=== PATIENT | female | born 1975 | race African-American/Black ===

== ENCOUNTER 2016-10-05 13:11 | Emergency (ER) | payer OTHER ==
[2016-10-05 13:21] VITALS: TEMP 99.1; BMI 29.8
--- NOTE | 2016-10-05 13:58 | PDOC ---
History of Present Illness - General Chief Complaint: Palpitations Stated Complaint: PALPITATION Time Seen by Provider: 10/05/16 13:18 - History of Present Illness Initial Comments: 10/05/16 13:52 41-year-old female with a negative past medical history Surgical history-liposuction She is on no medications, NKDA Patient is a nonsmoker Patient does not take oral contraceptives Patient states that she has had a long history of occasional palpitations, which are intermittent, and for which she has not sought medical attention She states that she was awakened at 4:30 AM this AM with palpitations which were on more continuously today, and then got worse at work, prompting her to come to the emergency department She states that there was a very brief episode of a right pinching chest pain associated with 1 episode, but no mid or left sided chest pain or left arm radiation She denies any shortness of breath She denies any leg swelling She denies any recent travel She denies any recent intercurrent illnesses, cough, sputum, fever, or any other acute recent illnesses She states that her palpitations are not related to caffeine intake She denies any history of thyroid issues She states that she has been on a diet, and working out, and is taking some nutritional supplements at this time, although she does not know what they are She denies any new abdominal pain (she has had some chronic abdominal wall issue since her liposuction, but these are unchanged ) She denies any other complaints at this time, and the remainder of the review of systems is negative Past History - Past Medical History Allergies/Adverse Reactions: Allergies Allergy/AdvReac Type Severity Reaction Status Date / Time No Known Allergies Allergy Verified 10/05/16 13:13 Home Medications: Ambulatory Orders NK [No Known Home Medication] 10/05/16 Other medical history: DENIES - Psycho/Social/Smoking Cessation Hx Anxiety: No Suicidal Ideation: No Smoking Status: No Smoking History: Never smoked Have you smoked in the past 12 months: No Number of Cigarettes Smoked Daily: 0 Hx Alcohol Use: No Drug/Substance Use Hx: No Substance Use Type: Alcohol Review of Systems - Review of Systems Able to Perform ROS?: Yes Comments:: 10/05/16 13:55 12 point review of systems is as per history of present illness and otherwise negative *Physical Exam - Vital Signs Last Vital Signs Temp Pulse Resp BP Pulse Ox 99.1 F 84 18 122/80 100 10/05/16 13:12 10/05/16 13:12 10/05/16 13:12 10/05/16 13:12 10/05/16 13:12 - Physical Exam Comments: 10/05/16 13:56 Physical exam Last Vital Signs Temp Pulse Resp BP Pulse Ox 99.1 F 84 18 122/80 100 10/05/16 13:12 10/05/16 13:12 10/05/16 13:12 10/05/16 13:12 10/05/16 13:12 GENERAL: The patient is awake, alert, and fully oriented, and in no apparent distress. HEAD: Normal with no signs of trauma. EYES: Sclera anicteric, conjunctiva normal ENT: Moist mucous membranes NECK: Normal range of motion, supple LUNGS: Breath sounds equal, clear to auscultation bilaterally. No wheezes, and no crackles. HEART: Regular rate and rhythm, normal S1 and S2 without murmur, rub or gallop. ABDOMEN: Soft, nontender, normoactive bowel sounds. No guarding, no rebound. No masses appreciated. EXTREMITIES: Normal range of motion, no edema. No clubbing or cyanosis. No cords, erythema, or tenderness. NEUROLOGICAL: Cranial nerves II through XII grossly intact. Normal speech, normal gait. PSYCH: Normal mood, normal affect. SKIN: Warm, Dry, normal turgor, no rashes or lesions noted. ED Treatment Course - LABORATORY CBC & Chemistry Diagram: 10/05/16 13:54 10/05/16 13:54 - RADIOLOGY Radiology Studies Ordered: Category Date Time Status CHEST X-RAY PORTABLE* [RAD] Stat Radiology 10/05/16 13:51 Ordered Medical Decision Making - Medical Decision Making 10/05/16 13:56 EKG Normal sinus rhythm 71, normal axis Normal AV and IV conduction time Normal QTC Normal EKG Patient remains in sinus rhythm on the monitor without ectopy 41-year-old female with a long history of some mild intermittent palpitations, has now started having more palpitations in the past 24 hours, and she is recently started some nutritional supplements/weight loss aids, which may be related to the increase in palpitations She's never had an echo, or seen a debridging machine operator for these palpitations I discussed with her stopping all of these supplements, as they are unregulated and she has no idea what's in them, and discussed the importance of trying to lose weight by exercising and eating healthy and not using the supplements 10/05/16 14:36 Chest x-ray-NAD Patient remains in normal sinus rhythm on the monitor 10/05/16 15:20 Laboratory Results - last 24 hr 10/05/16 10/05/16 10/05/16 13:54 13:54 13:54 WBC 5.6 RBC 4.51 Hgb 12.1 Hct 37.7 MCV 83.5 MCHC 32.2 RDW 13.3 Plt Count 258 MPV 10.1 Sodium 134 L Potassium 4.0 Chloride 105 Carbon Dioxide 27 Anion Gap 2 L BUN 9 Creatinine 0.7 Creat Clearance w eGFR > 60 Random Glucose 98 Calcium 8.9 Magnesium 2.0 Total Bilirubin 0.3 AST 21 ALT 21 Alkaline Phosphatase 59 Creatine Kinase 102 Troponin I < 0.03 L Total Protein 7.0 Albumin 4.0 Patient remains in sinus rhythm on the monitor, first set of cardiac enzymes negative, labwork reviewed TSH pending Will have patient stop all of her diet supplements, and will refer to cardiology for outpatient workup Will notify if TSH abnormal Vital Signs - 24 hr 10/05/16 10/05/16 13:12 15:21 Temperature 99.1 F Pulse Rate 84 Pulse Rate [ 78 Apical] Respiratory 18 16 Rate Blood Pressure 122/80 Blood Pressure 119/77 [Left Arm] O2 Sat by Pulse 100 99 Oximetry (%) *DC/Admit/Observation/Transfer Diagnosis at time of Disposition: Palpitations - Discharge Dispostion Disposition: HOME Condition at time of disposition: Stable - Referrals Referrals: Ji Oliver MD [Staff Physician] - Call tomorrow (call for appointment) Leroy Hendrickson MD [Staff Physician] - - Patient Instructions Printed Discharge Instructions: DI for Palpitations Additional Instructions: No coffee or any caffeine containing products Please do not use any of the weight loss or diet supplements as we discussed You will be notified if your TSH is abnormal Please follow-up with cardiology-call for an appointment-you are being referred to Dr. Oliver's group Followup with your primary care physician in 24-48 hours Return immediately if you worsen in any way - Post Discharge Activity Work/School Note: Back to Work
[2016-10-05 14:25] LABS: MCH 26.9 pg (25.7-33.7); MCHC 32.2 g/dl (32.0-36.0); MEAN CELL VOLUME 83.5 fl (80-96); MEAN PLT VOLUME 10.1 fl (7.5-11.1); PLATELET COUNT 258 K/MM3 (134-434); RDW 13.3 % (11.6-15.6); WHITE BLOOD COUNT 5.6 K/mm3 (4.0-10.0)
[2016-10-05 14:31] LABS: ALK PHOS 59 U/L (32-92); ANION GAP 2 (8-16); CALCIUM 8.9 mg/dl (8.4-10.2); CO2 27 mmol/L (22-28); CREATININE 0.7 mg/dl (0.6-1.3); GLUCOSE,RANDOM 98 mg/dl (74-106); SGOT/AST 21 U/L (10-42); SGPT/ALT 21 U/L (10-40)
[2016-10-05 14:32] LABS: CPK(DFH) 102 IU/L (26-140)
[2016-10-05 14:44] LABS: BILIRUBIN,TOTAL 0.3 mg/dl (0.2-1.0)
[2016-10-05 15:15] LABS: TROPONIN I (DFP) < 0.03 ng/ml (0.03-0.50)
[2016-10-05 15:22] VITALS: BP 119/77; PULSE 78
[2016-10-05 17:01] LABS: THYROID STIMULATING HORMONE 0.57 uIU/ml (0.358-3.74)
--- NOTE | 2016-10-06 13:57 | EKG ---
Test Reason : Blood Pressure : / mmHG Vent. Rate : 071 BPM Atrial Rate : 071 BPM P-R Int : 174 ms QRS Dur : 080 ms QT Int : 376 ms P-R-T Axes : 048 015 011 degrees QTc Int : 408 ms NORMAL SINUS RHYTHM NO PREVIOUS ECGS AVAILABLE Confirmed by MD GARCIA MARJORY ([id number]) on 10/06/2016 1:57:18 PM Referred By: JOSHUA NGUYEN Confirmed By:JAY GARCIA MD
== END 2016-10-05 15:37 | disposition home or self-care (01) ==
LOC: FER 13:11
DX: R00.2 Palpitations (principal)
CPT/HCPCS: 36415; 71010-TC; 80053; 82550; 83735; 84443; 84484; 85027; 93005; 99283-25

== ENCOUNTER 2017-05-18 14:42 | Emergency (ER) | payer OTHER ==
[2017-05-18 15:12] VITALS: BP 135/91; PULSE 94; TEMP 98; BMI 29.8
--- NOTE | 2017-05-18 15:23 | PDOC ---
History of Present Illness - General Chief Complaint: Injury Stated Complaint: LEFT THIGH WOUND Time Seen by Provider: 05/18/17 14:57 Past History - Past Medical History Allergies/Adverse Reactions: Allergies Allergy/AdvReac Type Severity Reaction Status Date / Time No Known Allergies Allergy Verified 05/18/17 14:51 Home Medications: Ambulatory Orders NK [No Known Home Medication] 10/05/16 - Immunization History Immunization Up to Date: Yes - Psycho/Social/Smoking Cessation Hx Anxiety: No Suicidal Ideation: No Smoking Status: No Smoking History: Never smoked Have you smoked in the past 12 months: No Number of Cigarettes Smoked Daily: 0 Hx Alcohol Use: Yes (OCCASIONAL) Drug/Substance Use Hx: No Substance Use Type: None *Physical Exam - Vital Signs Last Vital Signs Temp Pulse Resp BP Pulse Ox 98.0 F 94 H 16 135/91 99 05/18/17 14:50 05/18/17 14:50 05/18/17 14:50 05/18/17 14:50 05/18/17 14:50 Procedures - Laceration/Wound Repair Left Upper Anterior Volar Leg Wound Length: 2.6 to 5.0 cm Wound Explored: no foreign body present Wound's Depth, Shape: irregular Irrigated w/ Saline: Yes Betadine Prep: No Anesthesia: 1% Lidocaine Amount of Anesthetic (ccs): 10 Wound Debrided: minimal Wound Repaired With: Sutures Suture Size/Type: 4:0, nylon Number of Sutures: 5 Layer Closure: No Sterile Dressing Applied: Yes Splint Applied: No Medical Decision Making - Medical Decision Making 05/18/17 16:40 41yo female with no significant past medical history presents with a left thigh laceration. Laceration repaired with no complications. Tdap updated 2 years ago. Patient to return in 10 days for suture removal. *DC/Admit/Observation/Transfer Diagnosis at time of Disposition: Laceration - Discharge Dispostion Disposition: HOME Condition at time of disposition: Stable Admit: No - Patient Instructions Printed Discharge Instructions: DI for Suture Removal Additional Instructions: Follow-up here in 10 days for suture removal. Return to the emergency department immediately for any new or concerning symptoms or if your symptoms get worse - Attestations Physician Attestion: 05/18/17 16:43 I, Dr. Yosef Narayanan MD, attest that this document has been prepared under my direction and personally reviewed by me in its entirety. I further attest, that it accurately reflects all work, treatment, procedures and medical decision -making performed by me.
[2017-05-18] MEDS ORDERED: ACETAMINOPHEN 500 MG TABLET (FP) PO ONE (15:40)
[2017-05-18] MEDS ORDERED: ACETAMINOPHEN 500 MG TABLET (FP) ONE (15:41)
== END 2017-05-18 17:03 | disposition home or self-care (01) ==
LOC: FER 14:42
PROC: 0HQJXZZ Repair Left Upper Leg Skin, External Approach (ICD-10-PCS; principal; 2017-05-18)
DX: S71.112A Laceration without foreign body, left thigh, initial encounter (principal); W26.8XXA Contact with other sharp object(s), not elsewhere classified, initial encounter; Y93.89 Activity, other specified; Y92.410 Unspecified street and highway as the place of occurrence of the external cause
CPT/HCPCS: 99281-25

== ENCOUNTER 2017-06-30 13:16 | Emergency (ER) | payer OTHER ==
[2017-06-30 13:22] VITALS: BP 148/97; PULSE 95; TEMP 98.3; BMI 29.5
[2017-06-30] MEDS ORDERED: IBUPROFEN 600 MG TABLET (FP) PO ONE ×2 (13:46→14:07)
--- NOTE | 2017-06-30 13:53 | PDOC ---
History of Present Illness - General Chief Complaint: Ear Problem Stated Complaint: LEFT EAR PAIN Time Seen by Provider: 06/30/17 13:21 - History of Present Illness Initial Comments: 06/30/17 13:48 42 F with no PMH presents to ER with L ear pain x 1 week. Pt reports mild pain at rest that is worse with eating and chewing. She denies F/C. Denies nasal congestion. Denies sore throat. Denies ARAUZ. Denies neck pain. Denies hearing loss or tinnitus. Denies dizziness. Past History - Past Medical History Allergies/Adverse Reactions: Allergies Allergy/AdvReac Type Severity Reaction Status Date / Time No Known Allergies Allergy Verified 05/18/17 14:51 Home Medications: Ambulatory Orders NK [No Known Home Medication] 10/05/16 - Immunization History Immunization Up to Date: Yes - Suicide/Smoking/Psychosocial Hx Smoking Status: No Smoking History: Never smoked Have you smoked in the past 12 months: No Number of Cigarettes Smoked Daily: 0 Hx Alcohol Use: No Drug/Substance Use Hx: No Substance Use Type: None Review of Systems - Review of Systems Comments:: 06/30/17 13:49 "GENERAL/CONSTITUTIONAL: No fever or chills. No weakness. HEAD, EYES, EARS, NOSE AND THROAT: +L ear pain No change in vision. No sore throat. CARDIOVASCULAR: No chest pain or shortness of breath. RESPIRATORY: No cough, wheezing, or hemoptysis. GASTROINTESTINAL: No nausea, vomiting, diarrhea or constipation. GENITOURINARY: No dysuria, frequency, or change in urination. MUSCULOSKELETAL: No joint or muscle swelling or pain. No neck or back pain. SKIN: No rash NEUROLOGIC: No headache, vertigo, loss of consciousness, or change in strength/ sensation. ENDOCRINE: No increased thirst. No abnormal weight change. HEMATOLOGIC/LYMPHATIC: No anemia, easy bleeding, or history of blood clots. ALLERGIC/IMMUNOLOGIC: No hives or skin allergy. " *Physical Exam - Vital Signs Last Vital Signs Temp Pulse Resp BP Pulse Ox 98.3 F 95 H 15 148/97 98 06/30/17 13:17 06/30/17 13:17 06/30/17 13:17 06/30/17 13:17 06/30/17 13:17 - Physical Exam Comments: 06/30/17 13:50 "GENERAL: Awake, alert, and fully oriented, in no acute distress HEAD: No signs of trauma EYES: PERRLA, EOMI, sclera anicteric, conjunctiva clear ENT: TMs normal bilaterally, no pain with movement of pinna, no discharge, normal external auditory canal in both ears. Auricles normal inspection, hearing grossly normal, nares patent, oropharynx clear without exudates. Moist mucosa NECK: Nontender, no stepoffs, Normal ROM, supple, no lymphadenopathy, JVD, or masses LUNGS: Breath sounds equal, clear to auscultation bilaterally. No wheezes, and no crackles HEART: Regular rate and rhythm, normal S1 and S2, no murmurs, rubs or gallops ABDOMEN: Soft, nontender, normoactive bowel sounds. No guarding, no rebound. No masses EXTREMITIES: Normal range of motion, no edema. No clubbing or cyanosis. No cords, erythema, or tenderness NEUROLOGICAL: Cranial nerves II through XII intact. 5/5 strength and sensation in all extremities, Normal speech, normal gait SKIN: Warm, Dry, normal turgor, no rashes or lesions noted. " Medical Decision Making - Medical Decision Making 06/30/17 13:50 42 F with L ear pain exacerbated by eating. Ear exam completely normal. Pt with no infectious symptoms or bulging/erythema/fluid behind TM to suggest otitis media. No evidence of otitis externa on exam. Possible TMJ disorder. - Motrin - F/u ENT *DC/Admit/Observation/Transfer Diagnosis at time of Disposition: Ear pain, left - Discharge Dispostion Disposition: HOME Condition at time of disposition: Good - Referrals Referrals: Leroy Hendrickson MD [Primary Care Provider] - Mariano Wilkerson MD [Staff Physician] - - Patient Instructions Printed Discharge Instructions: DI for Temporomandibular Disorder Additional Instructions: Call Dr. Wilkerson to make an appointment in ENT clinic. Take motrin as needed for pain. If you experience worsening pain, fevers, hearing loss, or any other concerning symptoms, return to the ER immediately. - Attestations Physician Attestion: 06/30/17 13:52 I, Dr. Rasheed Rapp MD, attest that this document has been prepared under my direction and personally reviewed by me in its entirety. I further attest, that it accurately reflects all work, treatment, procedures and medical decision -making performed by me.
== END 2017-06-30 14:11 | disposition home or self-care (01) ==
LOC: FER 13:16
DX: H92.02 Otalgia, left ear (principal)
CPT/HCPCS: 99281-25

== ENCOUNTER 2018-02-04 07:14 | Emergency (ER) | payer OTHER ==
[2018-02-04 07:24] VITALS: BP 139/82; PULSE 85; TEMP 98.6; BMI 30.9
--- NOTE | 2018-02-04 07:45 | PDOC ---
Attending Attestation - Resident Resident Name: Thomas Potts - ED Attending Attestation I have performed the following: I have examined & evaluated the patient, The case was reviewed & discussed with the resident, I agree w/resident's findings & plan, Exceptions are as noted
[2018-02-04 08:46] LABS: URINE APPEARANCE CLOUDY; URINE BILIRUBIN NEGATIVE (<2.0 mg/dL); URINE COLOR YELLOW; URINE GLUCOSE (UA) NEGATIVE (NEGATIVE); URINE KETONE NEGATIVE (NEGATIVE); URINE LEUK ESTERASE NEGATIVE (NEGATIVE); URINE NITRITE NEGATIVE (NEGATIVE); URINE UROBILINOGEN NEGATIVE mg/dL (0.2-1.0)
[2018-02-04 08:53] LABS: URINE PROTEIN 1+ (NEGATIVE)
[2018-02-04 08:55] LABS: CALCIUM OXALATE CRYSTALS MODERATE /hpf (NONE SEEN); URINE BACTERIA FEW /hpf (NONE SEEN); URINE MUCUS FEW
[2018-02-04] MEDS ORDERED: IBUPROFEN 600 MG TABLET (FP) PO ONE ×2 (09:13→09:48)
[2018-02-04] MEDS ORDERED: SODIUM CHLORIDE 1,000 ML IV STA (09:13)
[2018-02-04 10:19] LABS: BASO % 1.3 % (0-2.0); EOS % 3.5 % (0-4.5); HEMATOCRIT 34.1 % (32.4-45.2); HEMOGLOBIN 11.1 GM/dL (10.7-15.3); LYMPH % 34.7 % (8-40); MCH 27.9 pg (25.7-33.7); MCHC 32.4 g/dl (32.0-36.0); MEAN CELL VOLUME 86.1 fl (80-96); MONO % 6.3 % (3.8-10.2); NEUT % 54.2 % (42.8-82.8); PLATELET COUNT 240 K/MM3 (134-434); RBC 3.97 M/mm3 (3.60-5.2); WHITE BLOOD COUNT 6.1 K/mm3 (4.0-10.0)
--- NOTE | 2018-02-04 10:23 | PDOC ---
History of Present Illness - General Chief Complaint: Vaginal Bleeding Stated Complaint: HEAVY VAGINAL BLEEDING Time Seen by Provider: 02/04/18 07:37 History Source: Patient Exam Limitations: No Limitations - History of Present Illness Travel History: No Initial Comments: 02/04/18 08:23 42-year-old female presents to the ED with irregular heavy bleeding since . Patient states her last period was approximately 2 weeks long from January 05 to January 19. Patient states has been taking progesterone pills prescribed by her CELERY CUTTER Dr. Salazar for the past few weeks which did alleviate her symptoms but states has also been doing homeopathic douches with hydrogen peroxide which she feels may have triggered her symptoms since . Patient states has had abdominal pain and cramping such as this with her menses but feels mildly fatigued without shortness of breath patient does state history of anemia and is currently on iron tablets once a day Timing/Duration: reports: constant Quality: reports: mild, cramping Abdominal Pain Onset Location: reports: suprapubic Pain Radiation: reports: no radiation Activities at Onset: reports: none Aggravating Factors: improves with: None Alleviating Factors: improves with: None Past History - Travel Traveled outside of the country in the last 30 days: No - Past Medical History Allergies/Adverse Reactions: Allergies Allergy/AdvReac Type Severity Reaction Status Date / Time No Known Allergies Allergy Verified 02/04/18 07:20 Home Medications: Ambulatory Orders NK [No Known Home Medication] 10/05/16 COPD: No Other medical history: DENIES. - Reproductive History Is Patient Now?: No - Immunization History Immunization Up to Date: Yes - Suicide/Smoking/Psychosocial Hx Smoking Status: No Smoking History: Never smoked Have you smoked in the past 12 months: No Number of Cigarettes Smoked Daily: 0 Hx Alcohol Use: Yes (OCCASIONAL) Drug/Substance Use Hx: No Substance Use Type: None Patient Lives Alone: No Lives with/in: spouse/SO Review of Systems - Review of Systems Able to Perform ROS?: No Constitutional: Yes: Weakness HEENTM: No: Symptoms Reported Respiratory: No: Shortness of Breath Cardiac (ROS): No: Symptoms Reported ABD/GI: Yes: Abdominal cramping : No: Symptoms Reported Musculoskeletal: No: Symptoms Reported Integumentary: No: Symptoms Reported Neurological: No: Symptoms reported Endocrine: No: Symptoms Reported Hematologic/Lymphatic: Yes: Anemia *Physical Exam - Vital Signs Last Vital Signs Temp Pulse Resp BP Pulse Ox 98.6 F 85 19 139/82 97 02/04/18 07:20 02/04/18 07:20 02/04/18 07:20 02/04/18 07:20 02/04/18 07:20 - Physical Exam General Appearance: Yes: Nourished, Appropriately Dressed. No: Apparent Distress HEENT: negative: Pale Conjunctivae Neck: positive: Normal Thyroid, Supple Respiratory/Chest: positive: Lungs Clear, Normal Breath Sounds. negative: Respiratory Distress, Accessory Muscle Use Cardiovascular: positive: Regular Rhythm, Regular Rate. negative: Murmur Female Pelvic Exam: positive: cervical os closed, vaginal bleeding (copious amount of bright red blood in vault. no clots). negative: CMT, adnexal tenderness Gastrointestinal/Abdominal: positive: Soft, Tenderness (mild mid suprapubic and left suprapubic) Extremity: positive: Normal Capillary Refill Integumentary: positive: Normal Color, Warm, Moist. negative: Pale Neurologic: positive: Motor Strength 5/5 (ambulatory) ED Treatment Course - LABORATORY CBC & Chemistry Diagram: 02/04/18 10:05 - ADDITIONAL ORDERS Additional order review: Laboratory Results 02/04/18 02/04/18 07:25 07:25 Urine Color Yellow Urine Appearance Cloudy Urine pH 7.0 Ur Specific [place] 1.019 Urine Protein 1+ H Urine Glucose (UA) Negative Urine Ketones Negative Urine Blood 3+ H Urine Nitrite Negative Urine Bilirubin Negative Urine Urobilinogen Negative Ur Leukocyte Esterase Negative Urine WBC (Auto) 50 Urine RBC (Auto) 2974 Calcium Oxalate Crystal Moderate Urine Bacteria Few Urine Mucus Few Urine HCG, Qual Negative - RADIOLOGY Radiology Studies Ordered: Category Date Time Status PELVIC / BLADDER US [US] Stat Ultrasound 02/04/18 09:14 Ordered TRANSVAGINAL ULTRASOUND US [US] Stat Ultrasound 02/04/18 09:14 Ordered Medical Decision Making - Medical Decision Making 02/04/18 08:27 Patient here was having irregular bleeding since . Patient states last menses was approximately 13 days ago which lasted 2 weeks. Patient had copious amount of bright red blood in the vault without clots and mid suprapubic tenderness. Patient with abdominal vital signs states generalized fatigue. Patient ordered for urine urine urine culture, IV fluids, Motrin by mouth, CBC and ultrasound. 02/04/18 10:28 Laboratory Tests 02/28/16 10/05/16 02/04/18 10:01 13:54 07:25 WBC Hgb 11.7 12.1 Hct Urine Blood Urine Nitrite Ur Leukocyte Esterase Urine WBC (Auto) Urine RBC (Auto) Urine HCG, Qual Negative 02/04/18 02/04/18 07:25 10:05 WBC 6.1 Hgb 11.1 Hct 34.1 Urine Blood 3+ H Urine Nitrite Negative Ur Leukocyte Esterase Negative Urine WBC (Auto) 50 Urine RBC (Auto) 2974 Urine HCG, Qual 02/04/18 11:23 Ultrasound shows an enlarged fibroid uterus with multiple masses fibroids identified within the posterior myometrium measuring 7.9 x 6.8 cm. Poor visualization of the endometrial stripe measuring approximately 1.2 cm in thickness. The right and left ovary with normal arterial vascular flow. There is no free fluid in the cul-de-sac. Patient will be discharged home to follow- up with Dr. Salazar, continue to take her iron and her progesterone. *DC/Admit/Observation/Transfer Diagnosis at time of Disposition: Vaginal bleeding - Discharge Dispostion Disposition: HOME Condition at time of disposition: Good - Referrals - Patient Instructions Printed Discharge Instructions: DI for Uterine Fibroids Additional Instructions: Please follow-up with your CELERY CUTTER and contusion take your iron and progesterone. If you develop any cramping please take Motrin 600 mg every 8 hours. You may also apply heating pad to the affected area for extra comfort. - Post Discharge Activity
== END 2018-02-04 11:50 | disposition home or self-care (01) ==
LOC: JER 07:14
PROC: 3E0337Z Introduction of Electrolytic and Water Balance Substance into Peripheral Vein, Percutaneous Approach (ICD-10-PCS; principal; 2018-02-04)
DX: D25.9 Leiomyoma of uterus, unspecified (principal)
CPT/HCPCS: 36415; 76830-TC; 76856-TC; 81003; 81015; 84703; 85025; 87086; 99284-25; J7030

== ENCOUNTER 2019-07-25 06:28 | Day surgery (SDC) | payer OTHER ==
[2019-07-24 16:12] VITALS: BMI 30.9
[2019-07-25] MEDS ORDERED: ONDANSETRON 4 MG/2 ML VIAL ONE (07:04)
[2019-07-25] MEDS ORDERED: PROPOFOL 20 ML ONE ×4 (07:04→08:21)
[2019-07-25] MEDS ORDERED: DEXAMETHASONE SOD PHOSPHATE 4 MG/1 ML VIAL ONE (07:04)
[2019-07-25] MEDS ORDERED: SUCCINYLCHOLINE CHLORIDE 200 MG/10 ML SYRINGE ONE (07:05)
[2019-07-25] MEDS ORDERED: MIDAZOLAM HCL 2 MG/2 ML SINGLE DOSE VIAL ONE (07:05)
[2019-07-25] MEDS ORDERED: ROCURONIUM BROMIDE 50 MG/5 ML SYRINGE ONE (07:05)
--- NOTE | 2019-07-25 07:16 | HP ---
[facility] - Chief Complaint Chief Complaint: Irregular uterine bleeding History of Present Illness: This patient has a long history of fibroid uterus and now also irregular uterine bleeding. History Source: Patient Limitations to Obtaining History: No Limitations - Past Medical History Allergies/Adverse Reactions: Allergies Allergy/AdvReac Type Severity Reaction Status Date / Time No Known Allergies Allergy Verified 07/25/19 06:55 ROOM SERVICE FOOD SERVER: No: Alzheimer's, CVA, Dementia, Migraine, Multiple Sclerosis, Peripheral Neuropathy, Parkinson's, Seizure, Syncope, TIA, Vertigo, Other Cardiovascular: No: AFIB, Aneurysm, Aortic Insufficiency, Aortic Stenosis, CAD, CHF, Deep Vein Thrombosis, HTN, Hyperlipdemia, MD, Mitral Insufficiency, Mitral Stenosis, Murmur, Pulmonary Hypertension, Other Pulmonary: No: Asthma, Bronchitis, Cancer, COPD, O2 Dependent, Pneumonia, Previously Intubated, Pulmonary Embolus, Pulmonary Fibrosis, Sleep Apnea, Other Gastrointestinal: No: Ascites, Cancer, Constipation, Crohn's Disease, Diverticulitis, Diverticulosis, Esophageal Varices, Gastritis, GERD, GI Bleed, Hemorrhoids, Hiatal Hernia, Inflamatory Bowel Disease, Irritable Bowel Disease, Pancreatitis, Peptic Ulcer Disease, Ulcerative Colitis, Other Hepatobiliary: No: Cirrhosis, Cholelithiasis, Cholecystitis, Choledocholithiasis , Hepatitis A, Hepatitis B, Hepatitis C, Other Renal/: No: Renal Failure, Renal Inusuff, BPH, Cancer, Hematuria, Hemodialysis , Neurogenic Bladder, Renal Calculi, UTI, Other Reproductive: No: Ectopic , Endometriosis, Fibroids, PID, Polycystic Ovary Syndrome, Postmenopausal, Other ...LMP: 07/17/19 ...: No ...: 5 ...Para: 1 Heme/Onc: No: Anemia, B12 Deficiency, Bleeding Disorder, Cancer, Current Chemotherapy, Current Radiation Therapy, Hemochromatosis, Hypercoaguable State, Myeloproliferative Synd, Sickle Cell Disease, Sickle Cell Trait, Thrombocytopenia, Other Infectious Disease: No: AIDS, C-Diff, Herpes Zoster, HIV, MRSA, STD's, Tuberculosis, VREF, Other Musculoskeletal: No: Bursitis, Chronic low back pain, Hemiparesis, Hemiplegia, Osteoarthritis, Paraplegia, Other Rheumatology: No: Fibromyalgia, Gout, Lupus, Rheumatoid Arthritis, Sarcoidosis, Vasculitis, Other ENT: No: Allergic Rhinitis, Sinusitis, Other Endocrine: No: Norwood's Disease, Carolann's Disease, Diabetes Insipidus, Diabetes Mellitus, Hyperparathyroidism, Hyperthyroidism, Hypothyroidism, Osteopenia, SIADH, Other - Current Medications Current Medications: Home Medications Medication Instructions Recorded Medroxyprogesterone Acetate 10 mg PO DAILY 07/25/19 [Provera] Satellite Physical Exam - Physical Examination Vital Signs: Vital Signs Period Temp Pulse Resp BP Sys/Connors Pulse Ox Last 24 Hr 98.7 F 78 16 136/91 99 General Appearance: Well Nourished, Well Developed, Alert & Oriented x3 ENT: Clear, No Discharge, No masses Lung: Clear to auscultation Heart: Regular rate & rhythm, Normal S1, Normal S2 Breasts: Soft, Non-Tender, No masses bilaterally Abdomen: Soft, No tenderness, No CVA Extremities: No edema, No tenderness/swelling Pelvic Exam: Within normal limits External Genitalia, Within normal limits Vagina, Within normal limits Cervix, Within normal limits Adenexa, Other Uterus (fibroid uterus) Neurological: Intact, Alert, Oriented Satellite Impression/Plan - Impression/Plan Impression: Irregular uterine bleeding and fibroid uterus. Operative Procedure: Hysteroscopy with D/C Date to be Performed: 07/25/19
[2019-07-25] MEDS ORDERED: ONDANSETRON 4 MG/2 ML VIAL IVPUSH PRN (08:13)
[2019-07-25] MEDS ORDERED: LACTATED RINGERS SOLUTION 1,000 ML IV SCH (08:15)
--- NOTE | 2019-07-25 08:54 | OP ---
DATE OF OPERATION: 07/25/2019 The patient was brought to the operating room, placed in the supine position, given anesthesia by the anesthesiologist, placed in the lithotomy position, prepped and draped in the usual manner. The patient was examined. Uterus was noted to be enlarged with fibroids. Adnexa negative. The anterior lip of the cervix was grasped with a tenaculum with a speculum in place, and the uterus was sounded to 10 cm. The cervix was then dilated with Adrian dilators. Hysteroscopy was performed. The endometrial cavity appeared to have tissue and clots, and a D&C was carried out with a medium-size curette. Tissue was obtained and sent to pathology for analysis. The endocervical area was also curetted using a smaller curette, and that tissue was also sent to pathology for analysis. The estimated blood loss was approximately 10 mL. The patient did well and was transferred to the recovery room in good condition. Jud [id number]
[2019-07-25 14:05] VITALS: TEMP 98.2
[2019-07-25 14:21] VITALS: BP 147/86; PULSE 83
--- NOTE | 2019-07-26 14:42 | PATH ---
Surgical Pathology Report Patient Name: CECILY BLANCA [facility]. Rec. #: [id number] /Age/Gender: 1975 (Age: 44) / F Account: [id number] Location: [facility] Taken: 07/25/2019 Received: 07/25/2019 Reported: 07/26/2019 Physicians: Mark Salazar M.D. Specimen(s) Received A: ENDOMETRIAL CURETTINGS B: ENDOCERVICAL CURETTINGS Clinical History Irregular uterine bleeding and fibroids Final Diagnosis A. ENDOMETRIUM, CURETTAGE: ENDOMETRIAL POLYP AND FRAGMENTS OF NON-POLYPOID WEAKLY PROLIFERATIVE ENDOMETRIUM. FEW FRAGMENTS OF SMOOTH MUSCLE TISSUE, CONSISTENT WITH LEIOMYOMA. BENIGN ENDOCERVICAL GLANDULAR TISSUE AND ECTOCERVICAL (SQUAMOUS) MUCOSA. B. ENDOCERVIX, CURETTAGE: BENIGN ENDOCERVICAL GLANDULAR TISSUE AND ECTOCERVICAL (SQUAMOUS) MUCOSA. FEW FRAGMENTS OF SMOOTH MUSCLE TISSUE, CONSISTENT WITH LEIOMYOMA. SCANT NON-POLYPOID WEAKLY PROLIFERATIVE ENDOMETRIUM. Electronically Signed Shyla Eller M.D. Gross Description A. Received in formalin labeled "endometrial curettings," is a 2.7 x 2.2 x 0.3 cm aggregate of moore-red soft tissue fragments. The formalin is filtered and the specimen is entirely submitted in 2 cassettes. B. Received in formalin labeled "endocervical," is a 1.5 x 1.4 x 0.2 cm aggregate of moore red soft tissue fragments. The formalin is filtered and the specimen is entirely submitted in one cassette. 07/25/2019 saudi07/25/2019
== END 2019-07-25 12:20 | disposition home or self-care (01) ==
LOC: JASU-SURG 06:28
PROVIDERS: ATTEND Obstetrics & Gynecology
PROC: 0UDB7ZX Extraction of Endometrium, Via Natural or Artificial Opening, Diagnostic (ICD-10-PCS; principal; 2019-07-25 07:30)
PROC: 0UJD8ZZ Inspection of Uterus and Cervix, Via Natural or Artificial Opening Endoscopic (ICD-10-PCS; 2019-07-25 07:30)
DX: N93.9 Abnormal uterine and vaginal bleeding, unspecified (principal); D25.9 Leiomyoma of uterus, unspecified
CPT/HCPCS: 84703; 88305-TC; 94760

== ENCOUNTER 2020-06-30 18:39 | Emergency (ER) | payer OTHER ==
--- OUTSIDE RECORDS SUMMARY | 2020-06-30 18:42 | XMS ---
:1975 Author Organization [facility] Support Name Relationship Address Phone [facility] Unavailable [address] [place] [address] LAUREN RUIZ SON [address] [place] [address] LAUREN RUIZ Child [address] [place] [address] Re-disclosure Warning The records that you are about to access may contain information from federally- assisted alcohol or drug abuse programs. If such information is present, then the following federally mandated warning applies: This information has been disclosed to you from records protected by federal confidentiality rules (42 CFR part 2). The federal rules prohibit you from making any further disclosure of this information unless further disclosure is expressly permitted by the written consent of the person to whom it pertains or as otherwise permitted by 42 CFR part 2. A general authorization for the release of medical or other information is NOT sufficient for this purpose. The Federal rules restrict any use of the information to criminally investigate or prosecute any alcohol or drug abuse patient.The records that you are about to access may contain highly sensitive health information, the redisclosure of which is protected by Article 27-F of the [facility] Public Health law. If you continue you may haveaccess to information: Regarding HIV / AIDS; Provided by facilities licensed or operated by the [facility] Office of Mental Health; or Provided by the [facility] Office for People With Developmental Disabilities. If such information is present, then the following [facility] mandated warning applies: This information has been disclosed to you from confidential records which are protected by state law. State law prohibits you from making any further disclosure of this information without the specific written consent of the person to whom it pertains, or as otherwise permitted by law. Any unauthorized further disclosure in violation of state law may result in a fine or [place] health [place] sentence or both. A general authorization for the release of medical or other information is NOT sufficient authorization for further disclosure. Encounters Encounter Providers Location Date Indications Data Source(s ) [facility] eCW2 ( [facility] 12:00:00 AM [facility] - [place] EDT [facility] [employer]) Medications Medication Brand Start Product Dose Route Administrative Pharmacy [facility] Indications Reaction Description Data Name Date Form Instructions Instructions Source(s) Terazol 3 UNK 1 eCW2 0.8 % 2018 application (Planne d 12:00: at bedtime Pa[facility] 00 AM - [facility] [employer]) Insurance Providers Payer name Policy type Policy ID Covered Covered green party's Policy P lex / Coverage green party ID relationship to [employer] type [employer] LOCAL [id number] - [id number] [facility] Surgeries/Procedures Procedure Description Date Indications Data Source(s) Wet Mount 06/24/2019 eCW2 ([facility]anned 12:00:00 AM EDT [facility] - [facility] [employer] [facility]) HIV Rapid Test INSTI 06/24/2019 eCW2 (P lanned 12:00:00 AM EDT [facility] - [facility] [employer] [facility]) CHLAMYDIA, ANTONIO 06/24/2019 eCW2 ([facility] 12:00:00 AM EDT [facility] - [facility] [employer] [facility]) SPECIMEN HANDLING 06/24/2019 eCW2 (Plan coby 12:00:00 AM EDT [facility] - [facility] [employer] [facility]) GONORRHEA, ANTONIO 06/24/2019 eCW2 ([facility] 12:00:00 AM EDT [facility] - [facility] [employer] [facility]) Vital Signs ID Date Data Source UNK Name Value Range Interpretation Code Description Data Source(s) Diastolic blood 80 mm[Hg] 80 mm[Hg] eCW2 (Ximena nned pressure [facility] - [facility] [employer]) Systolic blood 129 mm[Hg] 129 mm[Hg] eCW2 ([facility] pressure [facility] - [facility] [employer]) Body mass index 32.09 kg/m2 32.09 kg/m2 eCW2 (P lanned (BMI) [Ratio] [facility] [employer]) Body weight 187 [lb_av] 187 [lb_av] eCW2 (Plann ed Measured [facility] - [facility] [employer]) Body height 64 [in_us] 64 [in_us] eCW2 ([facility] [employer]) Patient Treatment Plan of Care Planned Activity Planned Date Details Description Data Source (s) Terazol 3 0.8 % 06/24/2019 12:00:00 AM eC W2 ([facility] EDT - [employer])
--- NOTE | 2020-06-30 19:03 | TELE ---
HPI Do you have fever,cough or shortness of breath?: No - General Reason For Visit: COVID 19 TEST History Source: Patient Past History - Medical History Allergies/Adverse Reactions: Allergies Allergy/AdvReac Type Severity Reaction Status Date / Time No Known Allergies Allergy Verified 05/29/20 17:33 Home Medications: Ambulatory Orders Lidocaine Patch Removal [Lidoderm Patch Removal] 1 each MC DAILY@2200 PRN #7 each 05/29/20 Methocarbamol [Robaxin -] 500 mg PO TID PRN #21 tablet 05/29/20 COPD: No - Immunization History Immunization Up to Date: Yes - Psycho-Social/Smoking History Smoking Status: No Smoking History: Never smoked Have you smoked in the past 12 months: No Number of Cigarettes Smoked Daily: 0 Review of Systems - Review of Systems Constitutional: No: Fever Respiratory: No: Cough *Physical Exam - Physical Exam Respiratory/Chest: negative: Respiratory Distress Discharge Diagnosis at time of Disposition: Encounter for laboratory testing for COVID-19 virus - Referrals Follow-up Referral(s): Adam Oakley MD [Primary Care Provider] - - Patient Instructions - Discharge Disposition: HOME Condition at time of Disposition: Stable
== END 2020-06-30 19:03 | disposition home or self-care (01) ==
LOC: JVIRT 18:39
DX: Z03.818 Encounter for observation for suspected exposure to other biological agents ruled out (principal)
CPT/HCPCS: C9803; Q3014-GT; U0003

== ENCOUNTER 2020-08-22 11:45 | Emergency (ER) | payer OTHER | END 2020-08-22 12:12 | disposition home or self-care (01) | LOC: JVIRT 11:45 | DX: Z11.59 Encounter for screening for other viral diseases (principal) | CPT/HCPCS: C9803; Q3014-GT; U0003 ==

== ENCOUNTER 2020-09-27 20:32 | Emergency (ER) | payer OTHER ==
[2020-09-27 21:00] VITALS: BP 143/83; PULSE 73; TEMP 99.3; BMI 30.9
== END 2020-09-27 21:48 | disposition home or self-care (01) ==
LOC: FER 20:32
DX: R07.9 Chest pain, unspecified (principal)
CPT/HCPCS: 71045-TC-FY; 99283-25

== ENCOUNTER 2020-12-31 20:02 | Emergency (ER) | payer OTHER ==
[2020-12-31 20:32] VITALS: BP 160/92; PULSE 85; TEMP 98.4; BMI 32.1
[2020-12-31 21:02] LABS: BASO % 2.9 % (0-2.0); EOS % 5.4 % (0-4.5); HEMATOCRIT 38.5 % (32.4-45.2); HEMOGLOBIN 12.4 GM/dl (10.7-15.3); LYMPH % 45.5 % (8-40); MCH 28.5 pg (25.7-33.7); MCHC 32.4 g/dl (32.0-36.0); MEAN CELL VOLUME 87.9 fl (80-96); MEAN PLT VOLUME 9.7 fl (7.5-11.1); MONO % 6.1 % (3.8-10.2); NEUT % 40.1 % (42.8-82.8); PLATELET COUNT 280 K/MM3 (134-434); RBC 4.38 M/mm3 (3.60-5.2); RDW 11.9 % (11.6-15.6); WHITE BLOOD COUNT 6.6 K/mm3 (4.0-10.8)
[2020-12-31 21:15] LABS: BILIRUBIN,TOTAL 0.3 mg/dl (0.2-1); CALCIUM 9.3 mg/dl (8.5-10); CREATININE 0.8 mg/dl (0.55-1.3)
== END 2020-12-31 21:57 | disposition home or self-care (01) ==
LOC: FER 20:02
DX: R00.2 Palpitations (principal)
CPT/HCPCS: 36415; 80053; 84443; 85025; 93005; 99284-25

== ENCOUNTER 2021-05-11 18:45 | Emergency (ER) | payer OTHER ==
[2021-05-11 19:45] VITALS: BP 139/91; PULSE 112; TEMP 99; BMI 30.9
[2021-05-11 19:49] LABS: BASO % 3.3 % (0-2.0); EOS % 4.2 % (0-4.5); HEMATOCRIT 33.9 % (32.4-45.2); HEMOGLOBIN 10.9 GM/dl (10.7-15.3); LYMPH % 38.8 % (8-40); MCH 25.8 pg (25.7-33.7); MEAN CELL VOLUME 80.6 fl (80-96); MEAN PLT VOLUME 9.8 fl (7.5-11.1); MONO % 5.4 % (3.8-10.2); NEUT % 48.3 % (42.8-82.8); PLATELET COUNT 342 10^3/uL (134-434); RBC 4.21 M/mm3 (3.60-5.2); RDW 15.6 % (11.6-15.6); WHITE BLOOD COUNT 8.4 K/mm3 (4.0-10.8)
[2021-05-11 19:53] LABS: HCG,QUALITATIVE URINE Negative
[2021-05-11 20:06] LABS: ALK PHOS 58 U/L (45-117); ANION GAP 11 MMOL/L (8-16); BILIRUBIN,TOTAL 0.7 mg/dl (0.2-1); CALCIUM 9.4 mg/dl (8.5-10); CHLORIDE 101 mmol/L (98-107); CO2 24 mmol/L (21-32); CREATININE 0.9 mg/dl (0.55-1.3); GLUCOSE,RANDOM 104 mg/dl (74-106); SGOT/AST 33 U/L (15-37); SGPT/ALT 52 U/L (13-61); SODIUM 136 mmol/L (136-145); TOT PROT 7.3 g/dl (6.4-8.2)
== END 2021-05-11 22:51 | disposition home or self-care (01) ==
LOC: FER 18:45
DX: R00.2 Palpitations (principal)
CPT/HCPCS: 36415; 71275-TC; 80053; 81003; 81015; 82550; 84439; 84484; 84703; 85025; 93005; 99285-25; Q9967

== ENCOUNTER 2022-07-05 18:00 | Emergency (ER) | payer OTHER ==
[2022-07-05 18:28] VITALS: BP 132/77; PULSE 84; RESP 19; TEMP 98.2; BMI 31.7
[2022-07-05] MEDS ORDERED: FAMOTIDINE 20 MG/50 ML IVPB 20 MG/50 ML MG IVPB ONE ×2 (20:16→20:21)
[2022-07-05] MEDS ORDERED: MAG HYDROX/AL HYDROX/SIMETH 30 ML UNIT-DOSE CUP PO ONE (20:16)
[2022-07-05] MEDS ORDERED: ACETAMINOPHEN 1000 MG/100 ML BAG IVPB ONE (20:16)
[2022-07-05] MEDS ORDERED: SODIUM CHLORIDE 0.9% 500 ML INFUS.BAG IV ONE (20:16)
[2022-07-05] MEDS ORDERED: MAG HYDROX/AL HYDROX/SIMETH 30 ML UNIT-DOSE CUP ONE (20:21)
[2022-07-05] MEDS ORDERED: ACETAMINOPHEN INJECTION 100 ML IVPB ONE (20:21)
[2022-07-05 21:11] LABS: BASO % 0.9 % (0-2.0); HEMATOCRIT 40.1 % (32.4-45.2); HEMOGLOBIN 13.3 GM/dL (10.7-15.3); MCH 28.2 pg (25.7-33.7); MCHC 33.1 g/dl (32.0-36.0); MEAN CELL VOLUME 85.2 fl (80-96); MEAN PLT VOLUME 9.9 fl (7.5-11.1); MONO % 9.2 % (3.8-10.2); NEUT % 47.9 % (42.8-82.8); PLATELET COUNT 255 10^3/uL (134-434); RBC 4.71 M/mm3 (3.60-5.2); WHITE BLOOD COUNT 7.2 K/mm3 (4.0-10.0)
[2022-07-05 21:24] LABS: CHLORIDE 104 mmol/L (98-107); SODIUM 138 mmol/L (136-145)
[2022-07-05 21:26] LABS: CALCIUM 9.8 mg/dL (8.5-10.1)
[2022-07-05 21:27] LABS: ALBUMIN 3.9 g/dl (3.4-5.0); ANION GAP 5 MMOL/L (8-16); BLOOD UREA NITROGEN 12.6 mg/dL (7-18); CO2 30 mmol/L (21-32); GLUCOSE,RANDOM 94 mg/dL (74-106); MAGNESIUM 2.5 mg/dL (1.8-2.4)
[2022-07-05 21:30] LABS: CREATININE 0.7 mg/dL (0.55-1.3); SGOT/AST 29 U/L (15-37); SGPT/ALT 30 U/L (13-61)
[2022-07-05 21:32] LABS: BILIRUBIN,TOTAL 0.3 mg/dL (0.2-1); TOT PROT 7.6 g/dl (6.4-8.2)
[2022-07-05 21:33] LABS: ALK PHOS 78 U/L (45-117)
[2022-07-05 22:36] LABS: PH,URINE 7.5 (5.0-8.0); URINE APPEARANCE CLOUDY; URINE BILIRUBIN NEGATIVE (NEGATIVE); URINE COLOR YELLOW; URINE GLUCOSE (UA) NEGATIVE (NEGATIVE); URINE KETONE NEGATIVE (NEGATIVE); URINE LEUK ESTERASE NEGATIVE (NEGATIVE); URINE NITRITE NEGATIVE (NEGATIVE); URINE PROTEIN NEGATIVE (NEGATIVE); URINE UROBILINOGEN 0.2 mg/dL (0.2-1.0)
[2022-07-05 22:52] LABS: HCG,QUALITATIVE URINE Negative
== END 2022-07-05 23:05 | disposition home or self-care (01) ==
LOC: JER 18:00
PROC: 3E033GC Introduction of Other Therapeutic Substance into Peripheral Vein, Percutaneous Approach (ICD-10-PCS; principal; 2022-07-05)
DX: R07.9 Chest pain, unspecified (principal)
CPT/HCPCS: 0241U-QW; 36415; 71045-TC-FY; 80053; 81003; 83735; 84484; 84703; 85025; 87086; 93005; 93010; 99285-25

== ENCOUNTER 2022-08-16 16:45 | Emergency (ER) | payer OTHER ==
[2022-08-16 16:59] VITALS: BP 128/84; PULSE 86; RESP 17; TEMP 97.8; BMI 32.5
== END 2022-08-16 18:50 | disposition home or self-care (01) ==
LOC: JERFT 16:45
DX: B02.9 Zoster without complications (principal)
CPT/HCPCS: 99283-25

== ENCOUNTER 2024-11-15 09:51 | Emergency (ER) | payer OTHER ==
[2024-11-15 10:12] VITALS: BP 129/75; PULSE 75; RESP 17; TEMP 98.5; BMI 32.5
[2024-11-15] MEDS ORDERED: MECLIZINE HCL 25 MG TABLET (FP) ONE (10:44)
[2024-11-15] MEDS: SODIUM CHLORIDE 0.9% 500 ML INFUS.BAG IV ONE (11:10)
[2024-11-15] MEDS: MECLIZINE HCL 25 MG TABLET (FP) PO ONE (11:10)
[2024-11-15 11:24] LABS: BASO % 0.5 % (0-2.0); EOS % 2.9 % (0-4.5); HEMATOCRIT 43.3 % (32.4-45.2); HEMOGLOBIN 14.7 GM/dL (10.7-15.3); LYMPH % 49.5 % (8-40); MCH 29.3 pg (25.7-33.7); MCHC 33.9 g/dl (32.0-36.0); MEAN CELL VOLUME 86.4 fl (80-96); MEAN PLT VOLUME 9.4 fl (7.5-11.1); MONO % 7.6 % (3.8-10.2); NEUT % 39.5 % (42.8-82.8); PLATELET COUNT 271 10^3/uL (134-434); RBC 5.01 M/mm3 (3.60-5.2); RDW 13.1 % (11.6-15.6)
[2024-11-15 11:40] LABS: POTASSIUM 4.2 mmol/L (3.5-5.1)
[2024-11-15 11:42] LABS: ALBUMIN 4.2 g/dl (3.4-5.0); BLOOD UREA NITROGEN 12.3 mg/dL (7-18); CALCIUM 9.8 mg/dL (8.5-10.1); MAGNESIUM 2.3 mg/dL (1.8-2.4)
[2024-11-15 11:46] LABS: CREATININE 0.8 mg/dL (0.55-1.3)
[2024-11-15 11:47] LABS: BILIRUBIN,TOTAL 0.6 mg/dL (0.2-1); TOT PROT 8.3 g/dl (6.4-8.2)
[2024-11-15] MEDS ORDERED: ACETAMINOPHEN INJECTION 100 ML ONE (13:04)
[2024-11-15] MEDS: ACETAMINOPHEN 1000 MG/100 ML BAG IVPB ONE (13:12)
== END 2024-11-15 15:11 | disposition home or self-care (01) ==
LOC: JER 09:51
PROC: 3E033NZ Introduction of Analgesics, Hypnotics, Sedatives into Peripheral Vein, Percutaneous Approach (ICD-10-PCS; principal; 2024-11-15)
DX: R42 Dizziness and giddiness (principal); R51.9 Headache, unspecified; R11.0 Nausea
CPT/HCPCS: 0241U-QW; 36415; 70450-TC; 80053; 83735; 84439; 84443; 85025; 93005; 93010; 99285-25; J0131

== ENCOUNTER 2025-05-02 13:06 | Emergency (ER) | payer OTHER ==
[2025-05-02 13:13] VITALS: RESP 19; TEMP 98.4; BMI 32.5
[2025-05-02 14:43] LABS: MCHC 31.6 g/dl (32.2-35.5); MEAN CELL VOLUME 89.8 fl (79.4-94.8); MEAN PLT VOLUME 12.3 fl (9.4-12.3); RDW 12.1 % (12.2-17.1)
[2025-05-02 14:58] LABS: GLUCOSE,RANDOM 106 mg/dL (74-106); TOT PROT 7.2 g/dl (6.4-8.2)
[2025-05-02 14:59] LABS: CO2 29 mmol/L (21-32)
[2025-05-02 15:01] LABS: ALK PHOS 73 U/L (40-150)
[2025-05-02 15:03] LABS: SGOT/AST 19 U/L (5-34); SGPT/ALT 22 U/L (0-55)
[2025-05-02 15:04] LABS: CREATININE 0.85 mg/dL (0.55-1.3)
[2025-05-02 15:24] LABS: HCV DIAGNOSTIC IN-HOUSE W/RFLX NON-REACTIVE (NONREACTIVE); HIV INTERPRETATION NEGATIVE (NEGATIVE)
[2025-05-02 16:37] VITALS: BP 114/76; PULSE 68
== END 2025-05-02 16:40 | disposition home or self-care (01) ==
LOC: JER 13:06
DX: R00.2 Palpitations (principal); R07.9 Chest pain, unspecified
CPT/HCPCS: 36415; 71045-TC-FY; 80053; 82550; 83735; 84439; 84443; 84484; 85027; 86803; 87389; 93005; 93010; 99285-25